=== PATIENT | male | born 1955 | race Asian ===

== ENCOUNTER 2016-06-09 09:12 | Emergency (ER) | payer OTHER ==
[~2016-06-09] VITALS: Ht 185.4 cm; Wt 87.1 kg
[2016-06-09 09:22] VITALS: BP 131/90
--- NOTE | 2016-06-09 09:34 | NUR ---
PATIENT PRESENTS TO ED WITH C/O LEFT ELBOW PAIN 2 WKS AGO, FELL AGAINST A CORNER OF A TABLE, ABLE TO BEND WITH PAIN, NO SWELLING, NO DISCOLORATION, FULL FLEX AND EXTENSION; HX DENIES; RX NONE; DENIES N/V/D; SKIN IS PINK/WARM/DRY; AAOX4 WITH EVEN AND STEADY GAIT; LUNGS CLEAR BL; HR EVEN AND REGULAR; PT DENIES ANY FEVER, CP, SOB, OR COUGH AT THIS TIME; PATIENT STATES PAIN OF 8/10 AT THIS TIME; VSS; PATIENT POSITIONED FOR COMFORT; HOB ELEVATED; BEDRAILS UP X2; BED DOWN. ER MD MADE AWARE OF PT STATUS.
--- NOTE | 2016-06-09 10:00 | NUR ---
MAINFRAME ARCHITECT GLADIS AT BEDSIDE, RESULTS SHOWN TO DR NOLASCO
[2016-06-09 11:45] VITALS: BP 136/92
== END 2016-06-09 11:45 | disposition home or self-care (01) ==
LOC: MED 09:12
DX: S53.402A Unspecified sprain of left elbow, initial encounter (principal); W19.XXXA Unspecified fall, initial encounter; Y93.89 Activity, other specified; Y92.89 Other specified places as the place of occurrence of the external cause; Y99.8 Other external cause status
CPT/HCPCS: 73080; 99284; Q0092

== ENCOUNTER 2019-12-25 10:23 | Day surgery (SDC) | payer OTHER, SELFPAY ==
[~2019-12-25] VITALS: Ht 182.9 cm; Wt 90.7 kg
[2019-12-25] MEDS ORDERED: fentaNYL citrate 0.05 MG/ML VIAL ONE (12:20)
[2019-12-25] MEDS ORDERED: MIDAZOLAM 5 MG/5 ML VIAL ONE (12:21)
[2019-12-25] MEDS ORDERED: LIDOCAINE 2% 100 MG/5 ML UJET TP ONE (12:21)
[2019-12-25] MEDS ORDERED: fentaNYL citrate 0.05 MG/ML VIAL IVP ONE (13:25)
[2019-12-25] MEDS ORDERED: MIDAZOLAM 2 MG/2 ML VIAL IVP ONE (13:25)
== END 2019-12-25 13:40 | disposition home or self-care (01) ==
LOC: MDS 10:23 → MMU 11:14 → MDS 13:40
PROVIDERS: ATTEND Internal Medicine Gastroenterology
DX: Z12.11 Encounter for screening for malignant neoplasm of colon (principal); K29.70 Gastritis, unspecified, without bleeding; K31.89 Other diseases of stomach and duodenum; Z79.899 Other long term (current) drug therapy
CPT/HCPCS: 43239; 45378; 87426; J2250; J3010; 88305; 88312; 88313